=== PATIENT | female | born 1965 | race Hispanic/Latino ===

== ENCOUNTER 2019-04-12 06:19 | Emergency (ER) | payer OTHER ==
[~2019-04-12] VITALS: Ht 157.5 cm; Wt 95.3 kg
--- OUTSIDE RECORDS SUMMARY | 2019-04-12 06:22 | XMS REPORT ---
[facility] Address Unknown Phone Unavailable Care Team Providers Care Heel Caser Name Role Phone Unavailable Unavailable Payers Payer Name Policy Type Policy Number Effective Date Expiration Date Problems This patient has no known problems. Allergies, Adverse Reactions, Alerts Allergy Name Allergy Type Status Severity Reaction(s) Onset Date Inactive Date Treating Clinician Comments Penicillins DA Active MO 2012-02-05 00:00:00 Medications This patient has no known medications. Results Test Description Test Time Test Comments Text Results Atomic Results Result Comments GLUBED 2019-03-05 08:24:00 GLUBED (test code=GLUBED) 129 mg/dL 74-106 Performed by certified vacuum cooker operator at [facility] BASIC METABOLIC [id number] 02:56:00* Test Item Value Reference Range Comments SODIUM (test code=NA) 138 mmol/L 136-145 POTASSIUM (test code=K) 4.1 mmol/L 3.5-5.1 CHLORIDE (test code=CL) 108.0 mmol/L 98-107 CARBON DIOXIDE (test code=CO2) 19.0 mmol/L 21-32 ANION GAP (test code=GAP) 15.1 10-20 GLUCOSE (test code=GLU) 142 mg/dL 74-106 BLOOD UREA NITROGEN (test code=BUN) 19 mg/dL 7-18 GLOMERULAR FILTRATION RATE (test code=GFR) 52 mL/min >=60 Estimated GFR by using Modified MDRD formula.Chronic kidney disease is defined as either kidney damageor GFR <60 mL/min/1.73 m2 for >3 months. CREATININE (test code=CREAT) 1.10 mg/dL 0.55-1.02 Note change in reference range due to change in reagent. BUN/CREATININE RATIO (test code=BUN/CREA) 17.1 10-20 CALCIUM (test code=CA) 8.5 mg/dL 8.5-10.1 CBC W/AUTO [id number] 02:40:00* Test Item Value Reference Range Comments WHITE BLOOD CELL (test code=WBC) 12.4 K/mm3 4.5-12.5 RED BLOOD CELL (test code=RBC) 3.72 mill/mm3 3.7-5.2 HEMOGLOBIN (test code=HGB) 9.3 gram/dL 11.5-15.5 HEMATOCRIT (test code=HCT) 30.7 % 36.0-46.0 MEAN CELL VOLUME (test code=MCV) 82.5 fL 80-98 MEAN CELL HGB (test code=MCH) 25.0 picogram 27.0-33.0 MEAN CELL HGB CONCETRATION (test code=MCHC) 30.3 gram/dL 33.0-36.0 RED CELL DISTRIBUTION WIDTH (test code=RDW) 15.5 % 11.6-16.2 RED CELL DISTRIBUTION WIDTH SD (test code=RDW-SD) 46.9 fL 37.0-51.0 PLATELET COUNT (test code=PLT) 230 K/mm3 150-450 MEAN PLATELET VOLUME (test code=MPV) 10.8 fL 6.7-11.0 NEUTROPHIL % (test code=NT%) 80.4 % 39.0-69.0 IMMATURE GRANULOCYTE % (test code=IG%) 0.7 % 0.0-5.0 LYMPHOCYTE % (test code=LY%) 11.4 % 25.0-55.0 MONOCYTE % (test code=MO%) 6.3 % 0.0-10.0 EOSINOPHIL % (test code=EO%) 0.9 % 0.0-5.0 BASOPHIL % (test code=BA%) 0.3 % 0.0-1.0 NUCLEATED RBC % (test code=NRBC%) 0.0 % 0-0 NEUTROPHIL # (test code=NT#) 9.94 K/mm3 1.8-7.7 IMMATURE GRANULOCYTE # (test code=IG#) 0.09 x10 3/uL 0-0.03 LYMPHOCYTE # (test code=LY#) 1.41 K/mm3 1.0-5.0 MONOCYTE # (test code=MO#) 0.78 K/mm3 0-0.8 EOSINOPHIL # (test code=EO#) 0.11 K/mm3 0.0-0.5 BASOPHIL # (test code=BA#) 0.04 K/mm3 0.0-0.2 NUCLEATED RBC # (test code=NRBC#) 0.00 K/mm3 0.0-0.1 [id number] 20:27:00* Test Item Value Reference Range Comments GLUBED (test code=GLUBED) 160 mg/dL 74-106 Performed by certified vacuum cooker operator at [facility] [id number] 18:28:00* Test Item Value Reference Range Comments GLUBED (test code=GLUBED) 149 mg/dL 74-106 Performed by certified vacuum cooker operator at [facility] [id number] 13:48:00* Test Item Value Reference Range Comments GLUBED (test code=GLUBED) 141 mg/dL 74-106 Performed by certified vacuum cooker operator at [facility] [id number] 08:15:00* Test Item Value Reference Range Comments GLUBED (test code=GLUBED) 136 mg/dL 74-106 Performed by certified vacuum cooker operator at [facility] BASIC METABOLIC [id number] 05:56:00* Test Item Value Reference Range Comments SODIUM (test code=NA) 139 mmol/L 136-145 POTASSIUM (test code=K) 4.3 mmol/L 3.5-5.1 CHLORIDE (test code=CL) 109.0 mmol/L 98-107 CARBON DIOXIDE (test code=CO2) 20.0 mmol/L 21-32 ANION GAP (test code=GAP) 14.3 10-20 GLUCOSE (test code=GLU) 141 mg/dL 74-106 BLOOD UREA NITROGEN (test code=BUN) 24 mg/dL 7-18 RESULT VERIFIED BY REPEAT ANALYSIS GLOMERULAR FILTRATION RATE (test code=GFR) 43 mL/min >=60 Estimated GFR by using Modified MDRD formula.Chronic kidney disease is defined as either kidney damageor GFR <60 mL/min/1.73 m2 for >3 months. CREATININE (test code=CREAT) 1.30 mg/dL 0.55-1.02 Note change in reference range due to change in reagent. BUN/CREATININE RATIO (test code=BUN/CREA) 18.5 10-20 CALCIUM (test code=CA) 8.3 mg/dL 8.5-10.1 BASIC METABOLIC [id number] 05:16:00* Test Item Value Reference Range Comments SODIUM (test code=NA) 139 mmol/L 136-145 POTASSIUM (test code=K) 4.3 mmol/L 3.5-5.1 CHLORIDE (test code=CL) 109.0 mmol/L 98-107 CARBON DIOXIDE (test code=CO2) mmol/L 21-32 ANION GAP (test code=GAP) 10-20 GLUCOSE (test code=GLU) mg/dL 74-106 BLOOD UREA NITROGEN (test code=BUN) mg/dL 7-18 GLOMERULAR FILTRATION RATE (test code=GFR) mL/min >=60 CREATININE (test code=CREAT) mg/dL 0.55-1.02 BUN/CREATININE RATIO (test code=BUN/CREA) 10-20 CALCIUM (test code=CA) 8.3 mg/dL 8.5-10.1 CBC W/AUTO [id number] 04:42:00* Test Item Value Reference Range Comments WHITE BLOOD CELL (test code=WBC) 16.0 K/mm3 4.5-12.5 RED BLOOD CELL (test code=RBC) 3.92 mill/mm3 3.7-5.2 HEMOGLOBIN (test code=HGB) 9.8 gram/dL 11.5-15.5 HEMATOCRIT (test code=HCT) 31.4 % 36.0-46.0 MEAN CELL VOLUME (test code=MCV) 80.1 fL 80-98 MEAN CELL HGB (test code=MCH) 25.0 picogram 27.0-33.0 MEAN CELL HGB CONCETRATION (test code=MCHC) 31.2 gram/dL 33.0-36.0 RED CELL DISTRIBUTION WIDTH (test code=RDW) 15.6 % 11.6-16.2 RED CELL DISTRIBUTION WIDTH SD (test code=RDW-SD) 45.1 fL 37.0-51.0 PLATELET COUNT (test code=PLT) 251 K/mm3 150-450 MEAN PLATELET VOLUME (test code=MPV) 11.4 fL 6.7-11.0 NEUTROPHIL % (test code=NT%) 83.1 % 39.0-69.0 IMMATURE GRANULOCYTE % (test code=IG%) 0.5 % 0.0-5.0 LYMPHOCYTE % (test code=LY%) 9.3 % 25.0-55.0 MONOCYTE % (test code=MO%) 6.9 % 0.0-10.0 EOSINOPHIL % (test code=EO%) 0.1 % 0.0-5.0 BASOPHIL % (test code=BA%) 0.1 % 0.0-1.0 NUCLEATED RBC % (test code=NRBC%) 0.0 % 0-0 NEUTROPHIL # (test code=NT#) 13.28 K/mm3 1.8-7.7 IMMATURE GRANULOCYTE # (test code=IG#) 0.08 x10 3/uL 0-0.03 LYMPHOCYTE # (test code=LY#) 1.48 K/mm3 1.0-5.0 MONOCYTE # (test code=MO#) 1.10 K/mm3 0-0.8 EOSINOPHIL # (test code=EO#) 0.02 K/mm3 0.0-0.5 BASOPHIL # (test code=BA#) 0.02 K/mm3 0.0-0.2 NUCLEATED RBC # (test code=NRBC#) 0.00 K/mm3 0.0-0.1 MANUAL DIFF REQUIRED (test code=MDIFF) NO [id number] 21:14:00* Test Item Value Reference Range Comments GLUBED (test code=GLUBED) 152 mg/dL 74-106 Performed by certified vacuum cooker operator at [facility] [id number] 17:36:00* Test Item Value Reference Range Comments GLUBED (test code=GLUBED) 132 mg/dL 74-106 Performed by certified vacuum cooker operator at [facility] [id number] 12:48:00* Test Item Value Reference Range Comments GLUBED (test code=GLUBED) 139 mg/dL 74-106 Performed by certified vacuum cooker operator at [facility] [id number] 09:14:00* Test Item Value Reference Range Comments GLUBED (test code=GLUBED) 189 mg/dL 74-106 Performed by certified vacuum cooker operator at [facility] CBC W/AUTO [id number] 05:12:00* Test Item Value Reference Range Comments WHITE BLOOD CELL (test code=WBC) 18.3 K/mm3 4.5-12.5 RED BLOOD CELL (test code=RBC) 4.02 mill/mm3 3.7-5.2 HEMOGLOBIN (test code=HGB) 10.2 gram/dL 11.5-15.5 HEMATOCRIT (test code=HCT) 32.9 % 36.0-46.0 MEAN CELL VOLUME (test code=MCV) 81.8 fL 80-98 MEAN CELL HGB (test code=MCH) 25.4 picogram 27.0-33.0 MEAN CELL HGB CONCETRATION (test code=MCHC) 31.0 gram/dL 33.0-36.0 RED CELL DISTRIBUTION WIDTH (test code=RDW) 15.3 % 11.6-16.2 RED CELL DISTRIBUTION WIDTH SD (test code=RDW-SD) 45.6 fL 37.0-51.0 PLATELET COUNT (test code=PLT) 230 K/mm3 150-450 RESULT VERIFIED BY REPEAT ANALYSIS MEAN PLATELET VOLUME (test code=MPV) 11.3 fL 6.7-11.0 NEUTROPHIL % (test code=NT%) 90.5 % 39.0-69.0 IMMATURE GRANULOCYTE % (test code=IG%) 0.7 % 0.0-5.0 LYMPHOCYTE % (test code=LY%) 4.6 % 25.0-55.0 MONOCYTE % (test code=MO%) 4.0 % 0.0-10.0 EOSINOPHIL % (test code=EO%) 0.0 % 0.0-5.0 BASOPHIL % (test code=BA%) 0.2 % 0.0-1.0 NUCLEATED RBC % (test code=NRBC%) 0.0 % 0-0 NEUTROPHIL # (test code=NT#) 16.58 K/mm3 1.8-7.7 IMMATURE GRANULOCYTE # (test code=IG#) 0.13 x10 3/uL 0-0.03 LYMPHOCYTE # (test code=LY#) 0.84 K/mm3 1.0-5.0 MONOCYTE # (test code=MO#) 0.74 K/mm3 0-0.8 EOSINOPHIL # (test code=EO#) 0.00 K/mm3 0.0-0.5 BASOPHIL # (test code=BA#) 0.04 K/mm3 0.0-0.2 NUCLEATED RBC # (test code=NRBC#) 0.00 K/mm3 0.0-0.1 LACTIC [id number] 05:10:00* Test Item Value Reference Range Comments LACTIC ACID (test code=LACT) 1.5 mmol/L 0.4-1.9 COMPREHENSIVE METABOLIC [id number] 05:10:00* Test Item Value Reference Range Comments SODIUM (test code=NA) 139 mmol/L 136-145 POTASSIUM (test code=K) 4.7 mmol/L 3.5-5.1 CHLORIDE (test code=CL) 109.0 mmol/L 98-107 CARBON DIOXIDE (test code=CO2) 21.0 mmol/L 21-32 ANION GAP (test code=GAP) 13.7 10-20 GLUCOSE (test code=GLU) 204 mg/dL 74-106 BLOOD UREA NITROGEN (test code=BUN) 34 mg/dL 7-18 GLOMERULAR FILTRATION RATE (test code=GFR) 26 mL/min >=60 Estimated GFR by using Modified MDRD formula.Chronic kidney disease is defined as either kidney damageor GFR <60 mL/min/1.73 m2 for >3 months. CREATININE (test code=CREAT) 2.00 mg/dL 0.55-1.02 Note change in reference range due to change in reagent. BUN/CREATININE RATIO (test code=BUN/CREA) 16.7 10-20 TOTAL PROTEIN (test code=PROT) 6.7 gram/dL 6.4-8.2 ALBUMIN (test code=ALB) 2.5 g/dL 3.4-5.0 GLOBULIN (test code=GLOB) 4.2 gram/dL 2.7-4.2 ALBUMIN/GLOBULIN RATIO (test code=A/G) 0.6 0.75-1.50 CALCIUM (test code=CA) 7.4 mg/dL 8.5-10.1 BILIRUBIN TOTAL (test code=BILT) 0.30 mg/dL 0.0-1.0 SGOT/AST (test code=AST) 11 IUnit/L 15-37 SGPT/ALT (test code=ALT) 21 IUnit/L 12-78 ALKALINE PHOSPHATASE TOTAL (test code=ALKP) 68 IUnit/L 45-117 Note change in reference range due to change in reagent. COMPREHENSIVE METABOLIC [id number] 04:57:00* Test Item Value Reference Range Comments SODIUM (test code=NA) 139 mmol/L 136-145 POTASSIUM (test code=K) 4.7 mmol/L 3.5-5.1 CHLORIDE (test code=CL) 109.0 mmol/L 98-107 CARBON DIOXIDE (test code=CO2) mmol/L 21-32 ANION GAP (test code=GAP) 10-20 GLUCOSE (test code=GLU) mg/dL 74-106 BLOOD UREA NITROGEN (test code=BUN) mg/dL 7-18 GLOMERULAR FILTRATION RATE (test code=GFR) mL/min >=60 CREATININE (test code=CREAT) mg/dL 0.55-1.02 BUN/CREATININE RATIO (test code=BUN/CREA) 10-20 TOTAL PROTEIN (test code=PROT) gram/dL 6.4-8.2 ALBUMIN (test code=ALB) g/dL 3.4-5.0 GLOBULIN (test code=GLOB) gram/dL 2.7-4.2 ALBUMIN/GLOBULIN RATIO (test code=A/G) 0.75-1.50 CALCIUM (test code=CA) mg/dL 8.5-10.1 BILIRUBIN TOTAL (test code=BILT) mg/dL 0.0-1.0 SGOT/AST (test code=AST) IUnit/L 15-37 SGPT/ALT (test code=ALT) IUnit/L 12-78 ALKALINE PHOSPHATASE TOTAL (test code=ALKP) IUnit/L 45-117 LACTIC [id number] 00:04:00* Test Item Value Reference Range Comments LACTIC ACID (test code=LACT) 2.4 mmol/L 0.4-1.9 Results called to [id number] by PAWAN 03/03/19 0004Critical results verified and read back by Nurse? Y PROCALCITONIN (PCT)2019-03-03 00:01:00* Test Item Value Reference Range Comments PROCALCITONIN (PCT) (test code=PROCAL) 1.09 ng/ml Concentration Interpretation (ng/mL) <0.51 Sepsis is not likely. Local bacterial infection is possible. (LOW RISK for progression to Sepsis) 0.51 - 2.00 Sepsis is possible, but other conditions are known to elevate PCT as well. (MODERATE RISK for progression to Sepsis) > 2.00 Sepsis is likely, unless other causes are known. (HIGH RISK for progression to Severe Sepsis or Septic Shock) 10.00 High likelihood of Severe Sepsis or Septic or higher Shock. *Increased PCT levels may not always be related to systemic bacterial infection.*Low PCT levels do not automatically exclude the presence of bacterial infection.*All results should be interpreted taking into account the patients history. DRUGS OF ABUSE SCREEN [id number] 23:54:00* Test Item Value Reference Range Comments UA PH DIPSTICK (test code=ROSALIND) 5.0 5.0-8.0 URN COCAINE (test code=COCAURN) NEGATIVE <300 ng/mL URN CANNABINOIDS (test code=CANNABURN) NEGATIVE <50 ng/mL URN AMPHETAMINE (test code=AMPHETURN) NEGATIVE <1000 ng/mL URN BARBITURATE (test code=BARBITURN) NEGATIVE <200 ng/mL URN BENZODIAZEPINE (test code=BENZOURN) NEGATIVE <200 ng/mL URN OPIATES (test code=OPIATURN) NEGATIVE <300 ng/mL URN PHENCYCLIDINE (PCP) (test code=PHENCURN) NEGATIVE <25 ng/mL URN METHADONE (test code=METHAURN) NEGATIVE <300 ng/mL URINALYSIS [id number] 23:37:00* Test Item Value Reference Range Comments UA COLOR (test code=COLU) YELLOW YELLOW UA APPEARANCE (test code=APPU) CLOUDY CLEAR UA GLUCOSE DIPSTICK (test code=DGLUU) 300-500 (3+) mg/dL NEGATIVE UA BILIRUBIN DIPSTICK (test code=BILU) NEGATIVE NEGATIVE UA KETONE DIPSTICK (test code=KETU) NEGATIVE mg/dL NEGATIVE UA SPECIFIC GRAVITY (test code=SGU) 1.020 1.001-1.035 UA BLOOD DIPSTICK (test code=ALVERTO) 3+ (Large) NEGATIVE UA PH DIPSTICK (test code=ROSALIND) 5.0 5.0-8.0 UA PROTEIN DIPSTICK (test code=PROU) 100 (2+) mg/dL Neg-15 UA UROBILINIOGEN DIPSTICK (test code=URO) 0.2 mg/dL 0.0-0.2 UA NITRITE DIPSTICK (test code=FABY) NEGATIVE NEGATIVE UA LEUKOCYTE ESTERASE W REFLEX (test code=LEUUR) 1+ NEGATIVE UA WBC (test code=WBCU) 101-150 per HPF 0-5 UA RBC (test code=RBCU) 101-150 #/HPF 0-5 UA EPITHELIAL CELLS (test code=EPIU) MOD per HPF FEW UA BACTERIA (test code=BACU) FEW #/HPF NONE UA MUCUS (test code=MUCU) FEW #/LPF FEW Urine Source? Clean CatchDRUGS OF ABUSE SCREEN [id number] 23:36:00* Test Item Value Reference Range Comments UA PH DIPSTICK (test code=ROSALIND) 5.0 5.0-8.0 URN COCAINE (test code=COCAURN) <300 ng/mL URN CANNABINOIDS (test code=CANNABURN) <50 ng/mL URN AMPHETAMINE (test code=AMPHETURN) <1000 ng/mL URN BARBITURATE (test code=BARBITURN) <200 ng/mL URN BENZODIAZEPINE (test code=BENZOURN) <200 ng/mL URN OPIATES (test code=OPIATURN) <300 ng/mL URN PHENCYCLIDINE (PCP) (test code=PHENCURN) <25 ng/mL URN METHADONE (test code=METHAURN) <300 ng/mL URINALYSIS [id number] 23:33:00* Test Item Value Reference Range Comments UA COLOR (test code=COLU) YELLOW UA APPEARANCE (test code=APPU) CLEAR UA GLUCOSE DIPSTICK (test code=DGLUU) 300-500 (3+) mg/dL NEGATIVE UA BILIRUBIN DIPSTICK (test code=BILU) NEGATIVE NEGATIVE UA KETONE DIPSTICK (test code=KETU) NEGATIVE mg/dL NEGATIVE UA SPECIFIC GRAVITY (test code=SGU) 1.020 1.001-1.035 UA BLOOD DIPSTICK (test code=ALVERTO) 3+ (Large) NEGATIVE UA PH DIPSTICK (test code=ROSALIND) 5.0 5.0-8.0 UA PROTEIN DIPSTICK (test code=PROU) 100 (2+) mg/dL Neg-15 UA UROBILINIOGEN DIPSTICK (test code=URO) 0.2 mg/dL 0.0-0.2 UA NITRITE DIPSTICK (test code=FABY) NEGATIVE NEGATIVE UA LEUKOCYTE ESTERASE W REFLEX (test code=LEUUR) 1+ NEGATIVE UA WBC (test code=WBCU) per HPF 0-5 UA RBC (test code=RBCU) per HPF 0-5 UA EPITHELIAL CELLS (test code=EPIU) per HPF Few UA BACTERIA (test code=BACU) per HPF NONE Urine Source? Clean CatchPOC LACTIC [id number] 23:03:00* Test Item Value Reference Range Comments POC LACTIC ACID (test code=POCLAC) 2.44 MMOL/L 0.4-2.2 - CT ABD PELVIS W/O [id number] 22:02:00 Name: SHIRA BONILLA [facility] : 1965 Age/S: 53 / F [address] Pending [facility] To [facility] Unit #: [id number] Loc: [place] [address] Phys: Pablito Calle MD Acct: [id number] Dis Date: Status: REG ER PHONE #: [phone] Exam Date: 03/02/2019 2141 FAX #: [phone] Reason: Abdominal pain EXAMS: CPT CODE: [id number] CT ABD PELVIS W/O CONT 07125 REASON FOR EXAM: Abdominal pain EXAM ORDER DATE: 03/02/2019 7:26 PM Ordering M.D.: Pablito Calle MD PROCEDURE: - CT ABD PELVIS W/O CONT COMPARISON: FINDINGS: CT images of the abdomen and pelvis were obtained without IV and without oral contrast at 5mm. Dose modulation, iterative reconstruction, and/or weight based adjustment of the MA/KV was utilized to reduce the radiation dose to as low as reasonably achievable. The liver, spleen, and pancreas are grossly within normal limits. The gallbladder was not seen suggestive of status post cholecystectomy The kidneys are within normal limits. The urinary bladder is contracted The colon, small bowel, and stomach are within normal limits without evidence of obstruction. The appendix is not seen No evidence of free air . The uterus is unremarkable. IMPRESSION: Minimal free fluid in the cul-de-sac and left subphrenic space at 2202 Reported and signed by: Shai Bal M.D. CC: Pablito Mendoza MD Technologist:Mary freeman RT(R); NIKUNJ Darnell CTDI: DLP: Trnscb Date/Time: 03/02/2019 (2201) tJOSE EDUARDOVTL Orig Print D/T: S: 03/02/2019 (2204) PAGE 1 Signed Report BASIC METABOLIC [id number] 21:11:00* Test Item Value Reference Range Comments SODIUM (test code=NA) 137 mmol/L 136-145 POTASSIUM (test code=K) 4.5 mmol/L 3.5-5.1 CHLORIDE (test code=CL) 105.0 mmol/L 98-107 CARBON DIOXIDE (test code=CO2) 17.0 mmol/L 21-32 ANION GAP (test code=GAP) 19.5 10-20 GLUCOSE (test code=GLU) 218 mg/dL 74-106 BLOOD UREA NITROGEN (test code=BUN) 32 mg/dL 7-18 GLOMERULAR FILTRATION RATE (test code=GFR) 28 mL/min >=60 Estimated GFR by using Modified MDRD formula.Chronic kidney disease is defined as either kidney damageor GFR <60 mL/min/1.73 m2 for >3 months. CREATININE (test code=CREAT) 1.90 mg/dL 0.55-1.02 Note change in reference range due to change in reagent. BUN/CREATININE RATIO (test code=BUN/CREA) 17.0 10-20 CALCIUM (test code=CA) 8.6 mg/dL 8.5-10.1 HEPATIC FUNCTION [id number] 21:11:00* Test Item Value Reference Range Comments TOTAL PROTEIN (test code=PROT) 8.2 gram/dL 6.4-8.2 ALBUMIN (test code=ALB) 3.3 g/dL 3.4-5.0 GLOBULIN (test code=GLOB) 4.9 gram/dL 2.7-4.2 ALBUMIN/GLOBULIN RATIO (test code=A/G) 0.7 0.75-1.50 BILIRUBIN TOTAL (test code=BILT) 0.40 mg/dL 0.0-1.0 BILIRUBIN DIRECT (test code=BILD) 0.11 mg/dL 0.0-0.20 SGOT/AST (test code=AST) 14 IUnit/L 15-37 SGPT/ALT (test code=ALT) 29 IUnit/L 12-78 ALKALINE PHOSPHATASE TOTAL (test code=ALKP) 86 IUnit/L 45-117 Note change in reference range due to change in reagent. [id number] 21:11:00* Test Item Value Reference Range Comments LIPASE (test code=LIP) 164 U/L 73.0-393.0 HCG SERUM [id number] 21:11:00* Test Item Value Reference Range Comments HCG SERUM QUAL (test code=HCGQL) NEGATIVE NEGATIVE This HCGQL test is NOT applicable for MALE patients.Check with nurse about probable order error.If Tumor Marker Test needed, nurse should order test "HCGTU"(Test #550.37610) [id number] 21:11:00* Test Item Value Reference Range Comments TROPONIN-I (test code=TROPI) <0.015 ng/mL 0-0.045 BASIC METABOLIC [id number] 20:57:00* Test Item Value Reference Range Comments SODIUM (test code=NA) 137 mmol/L 136-145 POTASSIUM (test code=K) 4.5 mmol/L 3.5-5.1 CHLORIDE (test code=CL) 105.0 mmol/L 98-107 CARBON DIOXIDE (test code=CO2) mmol/L 21-32 ANION GAP (test code=GAP) 10-20 GLUCOSE (test code=GLU) mg/dL 74-106 BLOOD UREA NITROGEN (test code=BUN) mg/dL 7-18 GLOMERULAR FILTRATION RATE (test code=GFR) mL/min >=60 CREATININE (test code=CREAT) mg/dL 0.55-1.02 BUN/CREATININE RATIO (test code=BUN/CREA) 10-20 CALCIUM (test code=CA) mg/dL 8.5-10.1 HEPATIC FUNCTION [id number] 20:57:00* Test Item Value Reference Range Comments TOTAL PROTEIN (test code=PROT) gram/dL 6.4-8.2 ALBUMIN (test code=ALB) g/dL 3.4-5.0 GLOBULIN (test code=GLOB) gram/dL 2.7-4.2 ALBUMIN/GLOBULIN RATIO (test code=A/G) 0.75-1.50 BILIRUBIN TOTAL (test code=BILT) mg/dL 0.0-1.0 BILIRUBIN DIRECT (test code=BILD) mg/dL 0.0-0.20 SGOT/AST (test code=AST) IUnit/L 15-37 SGPT/ALT (test code=ALT) IUnit/L 12-78 ALKALINE PHOSPHATASE TOTAL (test code=ALKP) IUnit/L 45-117 [id number] 20:57:00* Test Item Value Reference Range Comments LIPASE (test code=LIP) U/L 73.0-393.0 HCG SERUM [id number] 20:57:00* Test Item Value Reference Range Comments HCG SERUM QUAL (test code=HCGQL) NEGATIVE NEGATIVE This HCGQL test is NOT applicable for MALE patients.Check with nurse about probable order error.If Tumor Marker Test needed, nurse should order test "HCGTU"(Test #[id number]) [id number] 20:57:00* Test Item Value Reference Range Comments TROPONIN-I (test code=TROPI) ng/mL 0-0.045 BASIC METABOLIC [id number] 20:56:00* Test Item Value Reference Range Comments SODIUM (test code=NA) 137 mmol/L 136-145 POTASSIUM (test code=K) 4.5 mmol/L 3.5-5.1 CHLORIDE (test code=CL) 105.0 mmol/L 98-107 CARBON DIOXIDE (test code=CO2) mmol/L 21-32 ANION GAP (test code=GAP) 10-20 GLUCOSE (test code=GLU) mg/dL 74-106 BLOOD UREA NITROGEN (test code=BUN) mg/dL 7-18 GLOMERULAR FILTRATION RATE (test code=GFR) mL/min >=60 CREATININE (test code=CREAT) mg/dL 0.55-1.02 BUN/CREATININE RATIO (test code=BUN/CREA) 10-20 CALCIUM (test code=CA) mg/dL 8.5-10.1 HEPATIC FUNCTION [id number] 20:56:00* Test Item Value Reference Range Comments TOTAL PROTEIN (test code=PROT) gram/dL 6.4-8.2 ALBUMIN (test code=ALB) g/dL 3.4-5.0 GLOBULIN (test code=GLOB) gram/dL 2.7-4.2 ALBUMIN/GLOBULIN RATIO (test code=A/G) 0.75-1.50 BILIRUBIN TOTAL (test code=BILT) mg/dL 0.0-1.0 BILIRUBIN DIRECT (test code=BILD) mg/dL 0.0-0.20 SGOT/AST (test code=AST) IUnit/L 15-37 SGPT/ALT (test code=ALT) IUnit/L 12-78 ALKALINE PHOSPHATASE TOTAL (test code=ALKP) IUnit/L 45-117 [id number] 20:56:00* Test Item Value Reference Range Comments LIPASE (test code=LIP) U/L 73.0-393.0 HCG SERUM [id number] 20:56:00* Test Item Value Reference Range Comments HCG SERUM QUAL (test code=HCGQL) NEGATIVE [id number] 20:56:00* Test Item Value Reference Range Comments TROPONIN-I (test code=TROPI) ng/mL 0-0.045 CBC W/O [id number] 20:44:00* Test Item Value Reference Range Comments WHITE BLOOD CELL (test code=WBC) 22.7 K/mm3 4.5-12.5 RED BLOOD CELL (test code=RBC) 4.76 mill/mm3 3.7-5.2 HEMOGLOBIN (test code=HGB) 11.8 gram/dL 11.5-15.5 HEMATOCRIT (test code=HCT) 38.4 % 36.0-46.0 MEAN CELL VOLUME (test code=MCV) 80.7 fL 80-98 MEAN CELL HGB (test code=MCH) 24.8 picogram 27.0-33.0 MEAN CELL HGB CONCETRATION (test code=MCHC) 30.7 gram/dL 33.0-36.0 RED CELL DISTRIBUTION WIDTH (test code=RDW) 15.3 % 11.6-16.2 PLATELET COUNT (test code=PLT) 334 K/mm3 150-450 MEAN PLATELET VOLUME (test code=MPV) 11.2 fL 6.7-11.0 CBC W/O [id number] 20:43:00* Test Item Value Reference Range Comments WHITE BLOOD CELL (test code=WBC) K/mm3 4.5-12.5 RED BLOOD CELL (test code=RBC) mill/mm3 3.7-5.2 HEMOGLOBIN (test code=HGB) 11.8 gram/dL 11.5-15.5 HEMATOCRIT (test code=HCT) 38.4 % 36.0-46.0 MEAN CELL VOLUME (test code=MCV) fL 80-98 MEAN CELL HGB (test code=MCH) picogram 27.0-33.0 MEAN CELL HGB CONCETRATION (test code=MCHC) gram/dL 33.0-36.0 RED CELL DISTRIBUTION WIDTH (test code=RDW) % 11.6-16.2 PLATELET COUNT (test code=PLT) K/mm3 150-450 MEAN PLATELET VOLUME (test code=MPV) fL 6.7-11.0
--- OUTSIDE RECORDS SUMMARY | 2019-04-12 06:22 | XMS REPORT | Summary of Care ---
Author Author ALEX Alcala, ARMANDO Organization Unknown Address Unknown Phone Unavailable Care Team Providers [facility] Cook Name Role Phone ARMANDO JOHNSON M.D. Unavailable Unavailable ALEX CLANCY NE, ARMANDO ZUÑIGA Unavailable Unavailable Unavailable Unavailable Functional Status Name Dates Details Functional status health issues are not documented Status: Name Dates Details Cognitive status health issues are not documented Status: Problems Name Dates Details Cerumen impaction (380.4, H61.20) Status: Active Anemia (285.9, D64.9) Status: Active Dietary iron deficiency (269.8, E61.1) Status: Active High blood pressure (401.9, I10) Status: Active Left knee pain (719.46, M25.562) Status: Active Well woman exam (V72.31, Z01.419) Status: Active Vitamin B12 deficiency (266.2, E53.8) Status: Active Vitamin D deficiency (268.9, E55.9) Status: Active Diabetes (250.00, E11.9) Status: Active Hyperlipidemia, unspecified hyperlipidemia type (272.4, E78.5) Status: Active BMI 40.0-44.9, adult (V85.41, Z68.41) Status: Active Medications Name Dates Details Fish Oil 1200 MG Oral Capsule TAKE 1 CAPSULE TWICE DAILY Active Lisinopril-hydroCHLOROthiazide 20-12.5 MG Oral Tablet TAKE 1 TABLET DAILY * Refills: 0 ARMANDO JOHNSON M.D. Active amLODIPine Besylate 10 MG Oral Tablet TAKE 1 TABLET DAILY * Refills: 0 Active Synjardy 12.5-1000 MG Oral Tablet Take 1 tablet by mouth twice a day * Quantity: 60 Refills: 2 ARMANDO JOHNSON M.D. * Start : 04-Apr-2018 Active Atorvastatin Calcium 10 MG Oral Tablet TAKE 1 TABLET AT BEDTIME. * Quantity: 30 Refills: 2 Active OneTouch Verio In Vitro Strip USE TO CHECK BLOOD SUGAR ONCE A DAY * Quantity: 1 Refills: 1 ARMANDO JOHNSON M.D. * Start : 12-Oct-2017 Active 100 Strip Box OneTouch Delica Lancets Fine USE TO CHECK BLOOD SUGAR ONCE A DAY * Quantity: 1 Refills: 5 ARMANDO JOHNSON M.D. * Start : 12-Oct-2017 Active 100 Unit Box Vitamin B-12 1000 MCG Oral Tablet TAKE 1 TABLET DAILY * Quantity: 90 Refills: 1 ARMANDO JOHNSON M.D. * Start : 12-Oct-2017 Active Plavix 75 MG Oral Tablet TAKE 1 TABLET DAILY * Refills: 0 Active Hair Skin Nails Oral Capsule TAKE 1 CAPSULE DAILY * Refills: 0 Active Allergies and Adverse Reactions Name Dates Details Penicillins (Allergy) Status: Active Past Medical History Name Dates Details History of Diabetes mellitus, type 2 (250.00, E11.9) Status: Resolved History of Heart attack (410.90, I21.9) Status: Resolved Procedures Procedure Dates Details History of Cholecystectomy Completed Immunization Name Dates Details Immunizations not documented Family History Name Dates Details Family history of colon cancer (V16.0, Z80.0) Status: Active Name Dates Details Family history of diabetes mellitus (V18.0, Z83.3) Status: Active Family history of human immunodeficiency virus infection (V18.8, Z83.0) Status: Active Family history of Heart problem (429.9, I51.9) Status: Active Name Dates Details Family history of lupus erythematosus (V19.8, Z84.0) Status: Active Family history of Smoker (305.1, F17.200) Status: Active Social History Name Dates Details - Status: Name Dates Details Never smoker Vital Signs Date Test Result Details No Known Vitals to report Results Date Description Value Details Results not documented Plan of Care Name Dates Details Planned Observations Planned Goals not documented Planned Encounters Appointment; MELODY MATA M.D. On: 08-Mar-2019 9:30 Appointment; ARMANDO JOHNSON M.D. On: 17-Apr-2019 16:00 Interventions Provided Medication Changes* Synjardy 12.5-1000 MG Oral Tablet - Renew Instructions Name Dates Details Instructions not documented Encounters Appointment; ARMANDO JOHNSON M.D. Encounter Diagnosis: Problem not documented On: 12-Oct-2017 15:40 Appointment; ARMANDO JOHNSON M.D. Encounter Diagnosis: Problem not documented On: 15-Nov-2017 10:00 Appointment; ARMANDO JOHNSON M.D. Encounter Diagnosis: Problem not documented On: 17-Jan-2018 16:00 Appointment; ARMANDO JOHNSON M.D. Encounter Diagnosis: Problem not documented On: 18-Apr-2018 16:00 Appointment; ANGELIKA VICTORIA M.D. Encounter Diagnosis: Problem not documented On: 04-May-2018 15:30 Appointment; ARMANDO JOHNSON M.D. Encounter Diagnosis: Problem not documented On: 19-Jul-2018 16:00 Appointment; ARMANDO JOHNSON M.D. Encounter Diagnosis: Problem not documented On: 17-Oct-2018 16:00 Appointment; ARMANDO JOHNSON M.D. Encounter Diagnosis: Problem not documented On: 16-Jan-2019 16:00
[2019-04-12] MEDS ORDERED: SODIUM CHLORIDE 0.9% 1000ML 1,000 ML IV SCH ×2 (06:30→07:00)
[2019-04-12] MEDS ORDERED: SODIUM CHLORIDE 0.9% 1000ML 1,000 ML ONE (07:21)
--- NOTE | 2019-04-12 07:47 | Diagnostic Imaging Report ---
CT Abdomen and Pelvis without contrast INDICATION: Right upper quadrant pain, ^[id number] ^[id number] TECHNIQUE: Thin collimation axial images obtained from the diaphragm to the level of the pubic symphysis without nonionic intravenous contrast. Dose reduction techniques used: Automated exposure control, adjustment of the mAs and/or kVp according to patient size, standardized low-dose protocol, and/or iterative reconstruction technique. RADIATION DOSE: Total DLP: 778.23 mGy*cm Estimated effective dose: (DLP x 0.015 x size factor) mSv CTDIvol has been reviewed. It is below the limits set by the Radiation Protocol Committee (RPC). COMPARISON: None. ABDOMEN FINDINGS: Lung Bases: Clear. The visualized portion of the mediastinum is normal. Liver: Steatosis. No mass. Gallbladder: Not visualized and may be absent. No ductal dilatation. Pancreas: Normal attenuation without mass. Spleen: Normal size without mass. Adrenal Glands: No evidence for mass. Kidneys: Right: No renal calculus. No cortical mass or hydronephrosis Left: No renal calculus. No cortical mass or hydronephrosis Lymph Nodes: No lymphadenopathy. Aorta: Normal in diameter. PELVIS FINDINGS: Bowel: Stomach: Normal. Small Bowel: Normal in caliber with normal wall thickness. Large Bowel: The rectum travels between multiloculated masses and is mildly compressed. Large bowel proximal to these masses is not dilated.. Appendix: Normal. Bladder: Under distended. Ureters: No ureteral dilatation or calculus. Uterus: Present. There is fullness in the cervix with the cervix measuring approximately 2.8 x 5.0 cm in the axial plane. Adnexa: Lobulated low attenuating mass on the right measures 7.7 x 6.8 x 17.5 cm. The inferior portion is confluence with fluid attenuating material surrounding the rectum. No associated calcifications or areas of fat. This mass surrounds the broad ligament. Lobulated low attenuating mass on the left appears to have multiple locules. This measures 11.0 x 12.1 x 17.8 cm. The inferior portion is confluent with fluid attenuating material surrounding the rectum. No calcifications. No areas of fat. Neither ovary is visualized. Peritoneum/retroperitoneum: Lobulated fluid attenuating material in the posterior pelvis around the rectum is inseparable from the adnexal masses. The upper abdomen demonstrates no evidence of ascites or peritoneal nodularity. Lymph nodes: No enlarged pelvic or mesenteric lymph nodes. No enlarged lymph nodes in the upper abdomen. Bones: Mild degenerative changes of the spine. No focal osseous lesions.. IMPRESSION: 1. Steatosis. Possible cholecystectomy. No biliary ductal dilatation. 2. Bilateral lobulated soft tissue pelvic masses, possibly ovarian in etiology. Recommend further characterization with pelvic MRI. 3. Fullness of the cervix of uncertain etiology. Recommend correlation with pelvic exam and Pap smear. This can also be further characterized with pelvic MRI. 4. No evidence for bowel obstruction or inflammation. No evidence of renal calculus or obstructive uropathy. Signed by: Dr. Fabiola Dunbar MD on 04/12/2019 7:44 AM
[2019-04-12 08:44] VITALS: BP 129/88
== END 2019-04-12 08:45 | disposition home or self-care (01) ==
LOC: FSED 06:19
DX: R10.11 Right upper quadrant pain (principal); R10.31 Right lower quadrant pain; R94.31 Abnormal electrocardiogram [ECG] [EKG]; E11.9 Type 2 diabetes mellitus without complications; I25.10 Atherosclerotic heart disease of native coronary artery without angina pectoris; I25.2 Old myocardial infarction; Z95.5 Presence of coronary angioplasty implant and graft
CPT/HCPCS: 74176; 80053; 81003; 81025; 84484; 85025; 87086; 93005; 99284; J7030